=== PATIENT | female | born 1985 | race Caucasian/White ===

== ENCOUNTER 2018-12-08 10:51 | Emergency (ER) | payer BC ==
--- NOTE | 2018-12-08 11:11 | EDM.PDOC ---
ED HPI GENERAL MEDICAL PROBLEM - General Chief Complaint: Eye Problems Stated Complaint: SWOLLEN EYE Time Seen by Provider: 12/08/18 11:02 - History of Present Illness INITIAL COMMENTS - FREE TEXT/NARRATIVE: HISTORY AND PHYSICAL: History of present illness: Patient 33-year-old white female was seen last Saturday for conjunctivitis by her private doctor and put on ophthalmic antibiotic drops she states when she uses them that they burn so she therefore stopped using them but then states she reinitiated them in the last day or so. She was unaware of the discomfort in the form of burning the candle company that thought that she might be having allergic reaction or problem with the medications. She's had some mild lid edema since then. No fever chills nausea vomiting trauma or other concern patient is requesting a change in medication. Review of systems: As per history of present illness and below otherwise all systems reviewed and negative. Past medical history: As per history of present illness and as reviewed below otherwise noncontributory. Surgical history: As per history of present illness and as reviewed below otherwise noncontributory. Social history: No reported history of drug or alcohol abuse. Family history: As per history of present illness and as reviewed below otherwise noncontributory. Physical exam: HEENT: Atraumatic, normocephalic, pupils reactive, negative for conjunctival pallor or scleral icterus, mucous membranes moist, throat clear, neck supple, nontender, trachea midline. Patient is some mild edema of her left upper lid and mild injection of her conjunctiva no corneal foreign body or abrasion appreciated chambers clear Diagnostics: Visual acuity Therapeutics: None Impression: #1 blepharitis/conjunctivitis Definitive disposition and diagnosis as appropriate pending reevaluation and review of above. left eye Pain Score (Numeric/FACES): 5 - Related Data Allergies Allergy/AdvReac Type Severity Reaction Status Date / Time codeine Allergy Vomiting Verified 12/08/18 10:59 Home Meds: Home Meds Polymyxin B Sulfate 1 drop EYELF ASDIRECTED 12/08/18 [History] Past Medical History HEENT History: Reports: None Cardiovascular History: Reports: None Respiratory History: Reports: None Gastrointestinal History: Reports: None Genitourinary History: Reports: None VENDING TECHNICIAN History: Reports: None Musculoskeletal History: Reports: None Neurological History: Reports: None Psychiatric History: Reports: Anxiety Endocrine/Metabolic History: Reports: Hypothyroidism Hematologic History: Reports: None Immunologic History: Reports: None Oncologic (Cancer) History: Reports: None Dermatologic History: Reports: None - Past Surgical History Head Surgeries/Procedures: Reports: None HEENT Surgical History: Reports: None Cardiovascular Surgical History: Reports: None Respiratory Surgical History: Reports: None GI Surgical History: Reports: None Female Surgical History: Reports: None Endocrine Surgical History: Reports: None Neurological Surgical History: Reports: None Musculoskeletal Surgical History: Reports: None Oncologic Surgical History: Reports: None Dermatological Surgical History: Reports: None Social & Family History - Family History Family Medical History: Noncontributory - Tobacco Use Smoking Status *Q: Current Every Day Smoker Years of Tobacco use: 20 Packs/Tins Daily: 1 - Caffeine Use Caffeine Use: Reports: None - Recreational Drug Use Recreational Drug Use: No ED ROS GENERAL - Review of Systems Review Of Systems: ROS reveals no pertinent complaints other than HPI. ED EXAM GENERAL W FULL EYE - Physical Exam Exam: See Below (See dictation) Course - Vital Signs Last Recorded V/S: Last Vital Signs Temp 35.9 C 12/08/18 11:01 Pulse 88 12/08/18 11:01 Resp 18 12/08/18 11:01 BP 116/88 12/08/18 11:01 Pulse Ox 98 12/08/18 11:01 Departure - Departure Time of Disposition: 11:10 Disposition: Home, Self-Care 01 Clinical Impression: Conjunctivitis, Blepharitis - Discharge Information Referrals: PCP,None [Primary Care Provider] - Additional Instructions: The following information is given to patients seen in the emergency department who are being discharged to home. This information is to outline your options for follow-up care. We provide all patients seen in our emergency department with a follow-up referral. The need for follow-up, as well as the timing and circumstances, are variable depending upon the specifics of your emergency department visit. If you don't have a primary care physician on staff, we will provide you with a referral. We always advise you to contact your personal physician following an emergency department visit to inform them of the circumstance of the visit and for follow-up with them and/or the need for any referrals to a consulting specialist. The emergency department will also refer you to a specialist when appropriate. This referral assures that you have the opportunity for followup care with a specialist. All of these measure are taken in an effort to provide you with optimal care, which includes your followup. Under all circumstances we always encourage you to contact your private physician who remains a resource for coordinating your care. When calling for followup care, please make the office aware that this follow-up is from your recent emergency room visit. If for any reason you are refused follow-up, please contact the [facility] emergency department at and asked to speak to the emergency department charge nurse. [facility] [address] [place] [id number] Stop current medications erythromycin ophthalmic ointment as directed warm compresses as discussed follow-up ophthalmology above called schedule routine appointment as needed as discussed and return as needed as discussed
== END 2018-12-08 11:22 | disposition home or self-care (01) ==
LOC: MW.ED 10:51
DX: H10.9 Unspecified conjunctivitis (principal); H01.004 Unspecified blepharitis left upper eyelid; F17.210 Nicotine dependence, cigarettes, uncomplicated; Z88.5 Allergy status to narcotic agent
CPT/HCPCS: 99283

== ENCOUNTER 2020-04-27 07:56 | Inpatient (IN) | payer BC ==
[2020-04-27] MEDS ORDERED: Ondansetron 4 MG/2 ML SDV IVPUSH PRN (08:48)
[2020-04-27] MEDS ORDERED: Sodium Chloride 0.9% 10 ML SDV IV PRN (08:48)
[2020-04-27] MEDS ORDERED: Lidocaine 1% 50 ML MDV INJECT PRN (08:48)
[2020-04-27] MEDS ORDERED: Carboprost Tromethamine 250 MCG/1 ML Amp IM PRN (08:48)
[2020-04-27] MEDS ORDERED: Sodium Chloride 0.9% 2.5 ML Syringe FLUSH PRN (08:48)
[2020-04-27] MEDS ORDERED: Tranexamic Acid 1,000 MG in Sodium Chloride 0.9% 100 ML IV PRN (08:48)
[2020-04-27] MEDS ORDERED: Methylergonovine 0.2 MG/1 ML Amp IM PRN (08:48)
[2020-04-27] MEDS ORDERED: Terbutaline 1 MG/ML SDV SUBCUT PRN (08:48)
[2020-04-27] MEDS ORDERED: Sodium Chloride 0.9% 10 ML Syringe FLUSH PRN (08:48)
[2020-04-27] MEDS ORDERED: Misoprostol 200 MCG Tab PO PRN (08:48)
[2020-04-27] MEDS ORDERED: Water For Irrigation,Sterile 1,000 ML Container IRR PRN (08:48)
[2020-04-27] MEDS ORDERED: Ampicillin 2 GM in Sodium Chloride 0.9% 100 ML IV ONE (09:00)
[2020-04-27] MEDS ORDERED: Misoprostol 50 MCG (1/2 of 100 MCG) Tab PO ONE (09:00)
[2020-04-27] MEDS ORDERED: Oxytocin/0.9 % Sodium Chloride 30 UNIT/500 ML BAG IV SCH ×2 (09:00)
[2020-04-27] MEDS: Lactated Ringers 1,000 ML IV SCH ×2 (09:45→13:09)
[2020-04-27] MEDS ORDERED: Nalbuphine 10 MG/1 ML Vial IVPUSH PRN (11:31)
[2020-04-27] MEDS ORDERED: Butorphanol 1 MG/ML SDV IVPUSH PRN (11:31)
[2020-04-27] MEDS ORDERED: Bupivicaine/fentaNYL/NS 250 ML ONE (12:42)
[2020-04-27] MEDS: Ampicillin 1 GM in Sodium Chloride 0.9% 50 ML IV SCH ×2 (13:13→17:29)
--- NOTE | 2020-04-27 13:14 | PCM.PREANE ---
Preanesthetic Assessment - Anesthesia/Transfusion/Family Hx Anesthesia History: Prior Anesthesia Without Reaction Family History of Anesthesia Reaction: No Transfusion History: No Prior Transfusion(s) - Review of Systems General: No Symptoms Pulmonary: No Symptoms Cardiovascular: No Symptoms Gastrointestinal: No Symptoms Neurological: No Symptoms Other: Reports: Diabetes (GODM) - Physical Assessment NPO Status Date: 04/27/20 NPO Status Time: 13:00 Height: 5 ft 3 in Weight: 86.636 kg ASA Class: 2 Mental Status: Alert & Oriented x3 Airway Class: Mallampati = 2 Dentition: Reports: Normal Dentition Thyro-Mental Finger Breadths: 3 ROM/Head Extension: Full Lungs: Clear to Auscultation, Normal Respiratory Effort Cardiovascular: Regular Rate, Regular Rhythm - Lab Values: Laboratory Last Values WBC 7.98 K/uL (4.0-11.0) 04/27/20 09:20 RBC 4.44 M/uL (4.30-5.90) 04/27/20 09:20 Hgb 13.1 g/dL (12.0-16.0) 04/27/20 09:20 Hct 40.2 % (36.0-46.0) 04/27/20 09:20 MCV 90.5 fL (80.0-98.0) 04/27/20 09:20 MCH 29.5 pg (27.0-32.0) 04/27/20 09:20 MCHC 32.6 g/dL (31.0-37.0) 04/27/20 09:20 RDW Std Deviation 46.4 fl (28.0-62.0) 04/27/20 09:20 RDW Coeff of Janessa 14 % (11.0-15.0) 04/27/20 09:20 Plt Count 198 K/uL (150-400) 04/27/20 09:20 MPV 10.40 fL (7.40-12.00) 04/27/20 09:20 Nucleated RBC % 0.0 /100WBC 04/27/20 09:20 Nucleated RBCs # 0 K/uL 04/27/20 09:20 POC Glucose 78 mg/dL (60-110) 04/27/20 12:44 Membrane Rupture POSITIVE 04/27/20 08:03 Blood Type O POSITIVE 04/27/20 09:20 Antibody Screen NEGATIVE 04/27/20 09:20 - Allergies Allergies/Adverse Reactions: Allergies Allergy/AdvReac Type Severity Reaction Status Date / Time codeine Allergy Vomiting Verified 04/27/20 08:23 - Acknowledgements Anesthesia Type Planned: General Anesthesia Pt an Appropriate Candidate for the Planned Anesthesia: Yes Alternatives and Risks of Anesthesia Discussed w Pt/Guardian: Yes Pt/Guardian Understands and Agrees with Anesthesia Plan: Yes Additional Comments: - 38 3/7 weeks - active labor, SROM, dilated to 3 cm, Rating contractions 08/27 PreAnesthesia Questionnaire HEENT History: Reports: Impaired Vision Cardiovascular History: Reports: None Respiratory History: Reports: None Gastrointestinal History: Reports: None Genitourinary History: Reports: None 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: Musculoskeletal History: Reports: None Neurological History: Reports: Migraines, Other (See Below) Other Neuro History: restless leg syndrome Psychiatric History: Reports: Anxiety Endocrine/Metabolic History: Reports: Diabetes, Gestational, Other (See Below) Other Endocrine/Metabolic History: Grave's disease Hematologic History: Reports: None Immunologic History: Reports: None Oncologic (Cancer) History: Reports: None Dermatologic History: Reports: None - Past Surgical History Head Surgeries/Procedures: Reports: None HEENT Surgical History: Reports: Myringotomy w Tube(s), Oral Surgery Endocrine Surgical History: Reports: None Neurological Surgical History: Reports: None Oncologic Surgical History: Reports: None - SUBSTANCE USE Smoking Status *Q: Former Smoker Tobacco Use Within Last Twelve Months: Cigarettes, Vaping Recreational Drug Use History: No - HOME MEDS Home Medications: Home Meds Fish Oil/[place]-3 Fatty Acids [Fish Oil 1,000 MG] 1 cap PO DAILY 04/27/20 [ History] No122/Iron/Folic Acid [ Multi Tablet] 1 tab PO DAILY 04/27/20 [ History] Propranolol HCl 0.5 tab PO ASDIRECTED 04/27/20 [History] metFORMIN HCl [Metformin HCl] 1 tab PO BID 04/27/20 [History] methIMAzole [Methimazole] 1 tab PO TID 04/27/20 [History] - CURRENT (IN HOUSE) MEDS Current Meds: Current Medications Butorphanol Tartrate (Stadol) 1 mg IVPUSH Q1H PRN PRN Reason: Pain Last Admin: 06/10/20 11:47 Dose: 1 mg Carboprost Tromethamine (Hemabate Ds) 250 mcg IM ASDIRECTED PRN PRN Reason: Post Hemorrhage Tranexamic Acid 1,000 mg/ (Sodium Chloride) 110 mls @ 660 mls/hr IV ONETIME PRN PRN Reason: Bleeding Lactated Ringer's (Ringers, Lactated) 1,000 mls @ 150 mls/hr IV ASDIRECTED LÓPEZ Last Admin: 04/27/20 13:09 Dose: 999 mls/hr Oxytocin/Sodium Chloride (Oxytocin 30 Unit/500 Ml-Ns) 30 unit in 500 mls @ 999 mls/hr IV TITRATE LÓPEZ Oxytocin/Sodium Chloride (Oxytocin 30 Unit/500 Ml-Ns) 30 unit in 500 mls @ 2 mls/hr IV TITRATE LÓPEZ; Protocol Ampicillin Sodium 1 gm/ Sodium (Chloride) 50 mls @ 100 mls/hr IV Q4H LÓPEZ Lidocaine HCl (Xylocaine 1%) 50 ml INJECT ONETIME PRN PRN Reason: Laceration repair Methylergonovine Maleate (Methergine) 0.2 mg IM ASDIRECTED PRN PRN Reason: Post Hemorrhage Misoprostol (Cytotec) 200 mcg PO ONETIME PRN PRN Reason: Post Hemorrhage Nalbuphine HCl (Nubain) 10 mg IVPUSH Q1H PRN PRN Reason: Pain (severe 7-10) Ondansetron HCl (Zofran) 4 mg IVPUSH Q6H PRN PRN Reason: Nausea/Vomiting Sodium Chloride (Saline Flush) 10 ml FLUSH ASDIRECTED PRN PRN Reason: Keep Vein Open Sodium Chloride (Saline Flush) 2.5 ml FLUSH ASDIRECTED PRN PRN Reason: Keep Vein Open Sodium Chloride (Normal Saline) 10 ml IV ASDIRECTED PRN PRN Reason: IV Use Sterile Water (Sterile Water For Irrigation) 1,000 ml IRR ASDIRECTED PRN PRN Reason: delivery Terbutaline Sulfate (Brethine) 0.25 mg SUBCUT ASDIRECTED PRN PRN Reason: Tacysystole Discontinued Medications Ampicillin Sodium 2 gm/ Sodium (Chloride) 100 mls @ 200 mls/hr IV ONETIME ONE Stop: 04/27/20 09:29 Last Admin: 04/27/20 09:45 Dose: 200 mls/hr Fentanyl/Bupivacaine HCl (Fentanyl/Bupivacaine/Ns 2 Mcg-0.125% 250 Ml) Confirm Administered Dose 250 mls @ as directed .ROUTE .STK-MED ONE Stop: 04/27/20 12:43 Misoprostol (Cytotec) 50 mcg PO ONETIME ONE Stop: 04/27/20 09:01 Last Admin: 04/27/20 09:47 Dose: 50 mcg
[2020-04-27] MEDS ORDERED: Lidocaine 1% 50 ML MDV ONE (19:03)
[2020-04-27] MEDS ORDERED: Benzocaine/Menthol 20%-0.5% Spray 78 GM Cannister TOP PRN (20:36)
[2020-04-27] MEDS ORDERED: Docusate Sodium 100 MG Cap PO PRN (20:36)
[2020-04-27] MEDS ORDERED: Ibuprofen 400 MG Tab PO PRN (20:36)
[2020-04-27] MEDS ORDERED: oxyCODONE 5 MG Tab PO PRN (20:36)
[2020-04-27] MEDS ORDERED: Acetaminophen 500 MG Tab PO PRN ×2 (20:36)
[2020-04-27] MEDS ORDERED: Lanolin 100% Cream 7 GM Tube TOP PRN (20:36)
[2020-04-27] MEDS ORDERED: Bisacodyl 10 MG Supp RECTAL PRN (20:36)
[2020-04-27] MEDS ORDERED: Witch Hazel Medicated Pads 40/Jar TOP PRN (20:36)
--- NOTE | 2020-04-27 20:44 | PCM.DEL ---
L & D Note - General Info Date of Service: 04/27/20 - Delivery Note Labor: Augmented by Oxytocin Cervical Ripening Method: Misoprostil Delivery Outcome: Livebirth Infant Delivery Method: Spontaneous Vaginal Delivery-Single Presentation: Left Occiput Anterior (PAMELA) Nuchal Cord: None Anesthesia Type: Epidural Episiotomy Type: Right Mediolateral Suture type: Vicryl Suture size: 3-0 Placenta: Intact Cord: 3 Vessels Estimated Blood Loss: 300 Resuscitation Needed: No Score 1 min: 2 Score 5 min: 8 Delivery Comments (Free Text/Narrative):: Live female delivered at 1957 , weight 3040g - General Info Date of Service: 04/27/20 - Patient Data Weight - Most Recent: 86.636 kg Lab Results Last 24 Hours: Laboratory Results - last 24 hr 04/27/20 04/27/20 04/27/20 Range/Units 08:03 09:20 09:20 WBC 7.98 (4.0-11.0) K/uL RBC 4.44 (4.30-5.90) M/uL Hgb 13.1 (12.0-16.0) g/dL Hct 40.2 (36.0-46.0) % MCV 90.5 (80.0-98.0) fL MCH 29.5 (27.0-32.0) pg MCHC 32.6 (31.0-37.0) g/dL RDW Std Deviation 46.4 (28.0-62.0) fl RDW Coeff of Janessa 14 (11.0-15.0) % Plt Count 198 (150-400) K/uL MPV 10.40 (7.40-12.00) fL Nucleated RBC % 0.0 /100WBC Nucleated RBCs # 0 K/uL POC Glucose (60-110) mg/dL Membrane Rupture POSITIVE Blood Type O POSITIVE Antibody Screen NEGATIVE 04/27/20 04/27/20 04/27/20 Range/Units 10:23 12:44 16:08 WBC (4.0-11.0) K/uL RBC (4.30-5.90) M/uL Hgb (12.0-16.0) g/dL Hct (36.0-46.0) % MCV (80.0-98.0) fL MCH (27.0-32.0) pg MCHC (31.0-37.0) g/dL RDW Std Deviation (28.0-62.0) fl RDW Coeff of Janessa (11.0-15.0) % Plt Count (150-400) K/uL MPV (7.40-12.00) fL Nucleated RBC % /100WBC Nucleated RBCs # K/uL POC Glucose 99 78 79 (60-110) mg/dL Membrane Rupture Blood Type Antibody Screen 04/27/20 Range/Units 18:16 WBC (4.0-11.0) K/uL RBC (4.30-5.90) M/uL Hgb (12.0-16.0) g/dL Hct (36.0-46.0) % MCV (80.0-98.0) fL MCH (27.0-32.0) pg MCHC (31.0-37.0) g/dL RDW Std Deviation (28.0-62.0) fl RDW Coeff of Janessa (11.0-15.0) % Plt Count (150-400) K/uL MPV (7.40-12.00) fL Nucleated RBC % /100WBC Nucleated RBCs # K/uL POC Glucose 84 (60-110) mg/dL Membrane Rupture Blood Type Antibody Screen Med Orders - Current: Current Medications Acetaminophen (Tylenol Extra Strength) 500 mg PO Q4H PRN PRN Reason: Pain Acetaminophen (Tylenol Extra Strength) 1,000 mg PO Q4H PRN PRN Reason: Pain Benzocaine/Menthol (Dermoplast Pain Relief 20%-0.5% [place]loaf) 78 gm TOP ASDIRECTED PRN PRN Reason: Perineal Comfort Measure Bisacodyl (Dulcolax) 10 mg RECTAL ONETIME PRN PRN Reason: Constipation Butorphanol Tartrate (Stadol) 1 mg IVPUSH Q1H PRN PRN Reason: Pain Last Admin: 04/27/20 11:47 Dose: 1 mg Carboprost Tromethamine (Hemabate Ds) 250 mcg IM ASDIRECTED PRN PRN Reason: Post Hemorrhage Docusate Sodium (Colace) 100 mg PO BID PRN PRN Reason: Constipation Emollient Ointment (Lansinoh Hpa) 0 gm TOP ASDIRECTED PRN PRN Reason: Sore Nipples Tranexamic Acid 1,000 mg/ (Sodium Chloride) 110 mls @ 660 mls/hr IV ONETIME PRN PRN Reason: Bleeding Lactated Ringer's (Ringers, Lactated) 1,000 mls @ 150 mls/hr IV ASDIRECTED [facility] Last Admin: 04/27/20 13:09 Dose: 999 mls/hr Oxytocin/Sodium Chloride (Oxytocin 30 Unit/500 Ml-Ns) 30 unit in 500 mls @ 999 mls/hr IV TITRATE LÓPEZ Oxytocin/Sodium Chloride (Oxytocin 30 Unit/500 Ml-Ns) 30 unit in 500 mls @ 2 mls/hr IV TITRATE LÓPEZ; Protocol Last Titration: 04/27/20 16:08 Dose: 8 munits/min, 8 mls/hr Ampicillin Sodium 1 gm/ Sodium (Chloride) 50 mls @ 100 mls/hr IV Q4H [facility] Last Admin: 04/27/20 17:29 Dose: 100 mls/hr Ibuprofen (Motrin) 400 mg PO Q4H PRN PRN Reason: Pain Ibuprofen (Motrin) 800 mg PO Q6H PRN PRN Reason: Pain Lidocaine HCl (Xylocaine 1%) 50 ml INJECT ONETIME PRN PRN Reason: Laceration repair Methimazole (Methimazole) 5 mg PO TID [facility] Methylergonovine Maleate (Methergine) 0.2 mg IM ASDIRECTED PRN PRN Reason: Post Hemorrhage Misoprostol (Cytotec) 200 mcg PO ONETIME PRN PRN Reason: Post Hemorrhage Nalbuphine HCl (Nubain) 10 mg IVPUSH Q1H PRN PRN Reason: Pain (severe 7-10) Ondansetron HCl (Zofran) 4 mg IVPUSH Q6H PRN PRN Reason: Nausea/Vomiting Oxycodone HCl (Oxycodone) 5 mg PO Q2H PRN PRN Reason: Pain Sodium Chloride (Saline Flush) 10 ml FLUSH ASDIRECTED PRN PRN Reason: Keep Vein Open Sodium Chloride (Saline Flush) 2.5 ml FLUSH ASDIRECTED PRN PRN Reason: Keep Vein Open Sodium Chloride (Normal Saline) 10 ml IV ASDIRECTED PRN PRN Reason: IV Use Sterile Water (Sterile Water For Irrigation) 1,000 ml IRR ASDIRECTED PRN PRN Reason: delivery Terbutaline Sulfate (Brethine) 0.25 mg SUBCUT ASDIRECTED PRN PRN Reason: Tacysystole [place] (Tucks) 1 pad TOP ASDIRECTED PRN PRN Reason: comfort care Discontinued Medications Ampicillin Sodium 2 gm/ Sodium (Chloride) 100 mls @ 200 mls/hr IV ONETIME ONE Stop: 04/27/20 09:29 Last Admin: 04/27/20 09:45 Dose: 200 mls/hr Fentanyl/Bupivacaine HCl (Fentanyl/Bupivacaine/Ns 2 Mcg-0.125% 250 Ml) Confirm Administered Dose 250 mls @ as directed .ROUTE .STK-MED ONE Stop: 04/27/20 12:43 Last Admin: 04/27/20 13:19 Dose: Not Given Lidocaine HCl (Xylocaine 1%) Confirm Administered Dose 50 ml .ROUTE .STK-MED ONE Stop: 04/27/20 19:04 Misoprostol (Cytotec) 50 mcg PO ONETIME ONE Stop: 04/27/20 09:01 Last Admin: 04/27/20 09:47 Dose: 50 mcg - Problem List & Annotations (1) Vaginal delivery SNOMED Code(s): 603093266 Code(s): O80 - ENCOUNTER FOR FULL-TERM UNCOMPLICATED DELIVERY Status: Acute Current Visit: Yes - Problem List Review Problem List Initiated/Reviewed/Updated: Yes - My Orders Last 24 Hours: My Active Orders 04/27/20 08:32 Non Stress Test [RC] PER UNIT ROUTINE Up ad Danica [RC] ASDIRECTED Vaginal Exam [RC] Click to Edit Vital Signs [RC] PER UNIT ROUTINE 04/27/20 08:48 Carboprost Tromethamine [Hemabate DS] 250 mcg IM ASDIRECTED PRN Lidocaine 1% [Xylocaine 1%] 50 ml INJECT ONETIME PRN Methylergonovine [Methergine] 0.2 mg IM ASDIRECTED PRN Ondansetron [Zofran] 4 mg IVPUSH Q6H PRN Sodium Chloride 0.9% [Normal Saline] 10 ml IV ASDIRECTED PRN Sodium Chloride 0.9% [Saline Flush] 10 ml FLUSH ASDIRECTED PRN Sodium Chloride 0.9% [Saline Flush] 2.5 ml FLUSH ASDIRECTED PRN Terbutaline [Brethine] 0.25 mg SUBCUT ASDIRECTED PRN Tranexamic Acid [Cyklokapron] 1,000 mg Sodium Chloride 0.9% [Normal Saline] 100 ml IV ONETIME Water For Irrigation,Sterile [Sterile Water for Irrigation] 1,000 ml IRR ASDIRECTED PRN miSOPROStoL [Cytotec] 200 mcg PO ONETIME PRN 04/27/20 08:49 Patient Status [ADT] Routine Bedrest Bathroom Privileges [RC] ASDIRECTED Communication Order [RC] ASDIRECTED Communication Order [RC] ASDIRECTED Communication Order [RC] ASDIRECTED Heart Tones [RC] CONTINUOUS May Shower [RC] ASDIRECTED Notify Provider [RC] PRN Notify Provider [RC] PRN Notify Provider [RC] PRN Notify Provider [RC] STAT Oxygen Therapy [RC] ASDIRECTED Vaginal Exam [RC] PRN Vital Signs [RC] PER UNIT ROUTINE Scalp Electrode [WOMSER] Per Unit Routine Peripheral IV Insertion Adult [OM.PC] Routine 04/27/20 09:00 Lactated Ringers [Ringers, Lactated] 1,000 ml IV ASDIRECTED Oxytocin/0.9 % Sodium Chloride [Oxytocin 30 Unit/500 ML-NS] 30 unit in 500 ml IV TITRATE Oxytocin/0.9 % Sodium Chloride [Oxytocin 30 Unit/500 ML-NS] 30 unit in 500 ml IV TITRATE Medication Administration Instruction [OM.PC] Q3H 04/27/20 09:20 RPR (SYPHILIS SERO) W/ RFLX [REF] Routine 04/27/20 10:00 Blood Glucose Check, Bedside [RC] Q2HR 04/27/20 11:31 Butorphanol [Stadol] 1 mg IVPUSH Q1H PRN Nalbuphine [Nubain] 10 mg IVPUSH Q1H PRN 04/27/20 13:00 Ampicillin 1 gm Sodium Chloride 0.9% [Normal Saline] 50 ml IV Q4H 04/27/20 20:36 Patient Status [ADT] Routine May Shower [RC] ASDIRECTED Up ad Danica [RC] ASDIRECTED Vital Signs [RC] PER UNIT ROUTINE Acetaminophen [Tylenol Extra Strength] 1,000 mg PO Q4H PRN Acetaminophen [Tylenol Extra Strength] 500 mg PO Q4H PRN Benzocaine/Menthol [Dermoplast Pain Relief 20%-0.5% [place]] 78 gm TOP ASDIRECTED PRN Docusate Sodium [Colace] 100 mg PO BID PRN Ibuprofen [Motrin] 400 mg PO Q4H PRN Ibuprofen [Motrin] 800 mg PO Q6H PRN Lanolin [Lansinoh HPA] See Dose Instructions TOP ASDIRECTED PRN bisacodyL [Dulcolax] 10 mg RECTAL ONETIME PRN oxyCODONE 5 mg PO Q2H PRN witch Lola [Tucks] 1 pad TOP ASDIRECTED PRN Assess Lochia [WOMSER] Per Unit Routine Assess Uterine Involution [WOMSER] Per Unit Routine Peripheral IV Discontinue [OM.PC] Routine Resuscitation Status Routine 04/27/20 22:00 methIMAzole 5 mg PO TID 04/28/20 05:11 HEMOGLOBIN/HEMATOCRIT,HH [HEME] Timed
[2020-04-27] MEDS ORDERED: Oxytocin/0.9 % Sodium Chloride 30 UNIT/500 ML BAG ONE (22:16)
[2020-04-27] MEDS: Ibuprofen 800 MG Tab PO PRN (23:46)
[2020-04-28] MEDS: Methimazole 5 MG Tab PO SCH ×3 (06:37→23:00)
--- NOTE | 2020-04-28 07:22 | PCM48HPAN ---
Post Anesthesia Note - EVALUATION WITHIN 48HRS OF ANESTHETIC Vital Signs in Normal Range: Yes Patient Participated in Evaluation: Yes Respiratory Function Stable: Yes Airway Patent: Yes Cardiovascular Function Stable: Yes Hydration Status Stable: Yes Pain Control Satisfactory: Yes Nausea and Vomiting Control Satisfactory: Yes Mental Status Recovered: Yes Vital Signs: Last Vital Signs Temp 36.4 C 04/28/20 04:54 Pulse 75 04/28/20 04:54 Resp 15 04/28/20 04:54 BP 97/56 L 04/28/20 04:54 Pulse Ox 100 04/28/20 04:54
--- NOTE | 2020-04-28 10:06 | OR ---
SURGEON: DEANA SALAMANCA DATE OF PROCEDURE: 04/27/2020 PREOPERATIVE DIAGNOSIS: A 35-year-old G4, P3, at 38 weeks 3 days, admitted for induction of labor for pre-labor rupture of membranes. She is also GDM A2, on metformin, and hyperthyroidism, on methimazole. POSTOPERATIVE DIAGNOSES: A 35-year-old G4, P3, at 38 weeks 3 days, admitted for induction of labor for pre-labor rupture of membranes. She is also GDM A2, on metformin, and hyperthyroidism, on methimazole. PROCEDURE: Normal spontaneous vaginal delivery and repair of right mediolateral episiotomy. ESTIMATED BLOOD LOSS: 300. ANESTHESIA: Epidural. IV FLUIDS: Pitocin running. NOTES AND FINDINGS: Live female delivered at 1957, score is 2 and 8. Weight is 3040 g. PROCEDURE: Patient came in complaining of leakage of fluid. She had an AmniSure done, was positive. As a result, she was admitted. She was 1 cm dilated. She got Cytotec and she made change. She became 3 and Pitocin was started. Then, she made change and became fully dilated. The patient being fully dilated, she was encouraged to push. With good pushing effort, she delivered the head, subsequently by the anterior and posterior shoulder. Body was delivered and placed on maternal abdomen. Cord clamping was done. Cord blood gases was obtained Placenta was delivered via controlled cord traction. Perineum was inspected. Episiotomy was repaired in layers with 3-0 Vicryl. The uterus, bimanual massage was done. Hemostasis was noted. Uterus was noted to be firm. Then, the patient was left in Labor and Delivery room in stable condition. WALLACE AHN /[id number] FLY
[2020-04-28] MEDS: Ibuprofen 800 MG Tab PO PRN (12:40)
--- NOTE | 2020-04-28 15:14 | PCM.PNPP ---
- General Info Date of Service: 04/28/20 Functional Status: Reports: Pain Controlled, Tolerating Diet, Ambulating, Urinating - Review of Systems General: Reports: No Symptoms HEENT: Reports: No Symptoms Pulmonary: Reports: No Symptoms Cardiovascular: Reports: No Symptoms Gastrointestinal: Reports: No Symptoms Genitourinary: Reports: No Symptoms Musculoskeletal: Reports: No Symptoms Skin: Reports: No Symptoms Neurological: Reports: No Symptoms Psychiatric: Reports: No Symptoms - General Info Date of Service: 04/28/20 - Patient Data Vital Signs - Most Recent: Last Vital Signs Temp 36.5 C 04/28/20 07:45 Pulse 88 04/28/20 07:45 Resp 16 04/28/20 07:45 BP 106/66 04/28/20 07:45 Pulse Ox 95 04/28/20 07:45 Weight - Most Recent: 86.636 kg Lab Results - Last 24 Hours: Laboratory Results - last 24 hr 04/27/20 04/27/20 04/28/20 Range/Units 16:08 18:16 05:03 Hgb 12.3 (12.0-16.0) g/dL Hct 36.5 (36.0-46.0) % POC Glucose 79 84 (60-110) mg/dL Med Orders - Current: Current Medications Acetaminophen (Tylenol Extra Strength) 500 mg PO Q4H PRN PRN Reason: Pain Acetaminophen (Tylenol Extra Strength) 1,000 mg PO Q4H PRN PRN Reason: Pain Benzocaine/Menthol (Dermoplast Pain Relief 20%-0.5% [place]) 78 gm TOP ASDIRECTED PRN PRN Reason: Perineal Comfort Measure Last Admin: 04/27/20 23:45 Dose: 1 canister Bisacodyl (Dulcolax) 10 mg RECTAL ONETIME PRN PRN Reason: Constipation Butorphanol Tartrate (Stadol) 1 mg IVPUSH Q1H PRN PRN Reason: Pain Last Admin: 04/27/20 11:47 Dose: 1 mg Carboprost Tromethamine (Hemabate Ds) 250 mcg IM ASDIRECTED PRN PRN Reason: Post Hemorrhage Docusate Sodium (Colace) 100 mg PO BID PRN PRN Reason: Constipation Emollient Ointment (Lansinoh Hpa) 0 gm TOP ASDIRECTED PRN PRN Reason: Sore Nipples Last Admin: 04/27/20 23:46 Dose: 1 tube Tranexamic Acid 1,000 mg/ (Sodium Chloride) 110 mls @ 660 mls/hr IV ONETIME PRN PRN Reason: Bleeding Lactated Ringer's (Ringers, Lactated) 1,000 mls @ 150 mls/hr IV ASDIRECTED [facility] Last Admin: 04/27/20 13:09 Dose: 999 mls/hr Oxytocin/Sodium Chloride (Oxytocin 30 Unit/500 Ml-Ns) 30 unit in 500 mls @ 999 mls/hr IV TITRATE [facility] Oxytocin/Sodium Chloride (Oxytocin 30 Unit/500 Ml-Ns) 30 unit in 500 mls @ 2 mls/hr IV TITRATE [facility]; Protocol Last Titration: 04/27/20 19:58 Dose: 999 munits/min, 999 mls/hr Ibuprofen (Motrin) 400 mg PO Q4H PRN PRN Reason: Pain Ibuprofen (Motrin) 800 mg PO Q6H PRN PRN Reason: Pain Last Admin: 04/28/20 12:40 Dose: 800 mg Lidocaine HCl (Xylocaine 1%) 50 ml INJECT ONETIME PRN PRN Reason: Laceration repair Methimazole (Methimazole) 5 mg PO TID [facility] Last Admin: 04/28/20 06:37 Dose: 5 mg Methylergonovine Maleate (Methergine) 0.2 mg IM ASDIRECTED PRN PRN Reason: Post Hemorrhage Misoprostol (Cytotec) 200 mcg PO ONETIME PRN PRN Reason: Post Hemorrhage Nalbuphine HCl (Nubain) 10 mg IVPUSH Q1H PRN PRN Reason: Pain (severe 7-10) Ondansetron HCl (Zofran) 4 mg IVPUSH Q6H PRN PRN Reason: Nausea/Vomiting Oxycodone HCl (Oxycodone) 5 mg PO Q2H PRN PRN Reason: Pain Sodium Chloride (Saline Flush) 10 ml FLUSH ASDIRECTED PRN PRN Reason: Keep Vein Open Sodium Chloride (Saline Flush) 2.5 ml FLUSH ASDIRECTED PRN PRN Reason: Keep Vein Open Sodium Chloride (Normal Saline) 10 ml IV ASDIRECTED PRN PRN Reason: IV Use Sterile Water (Sterile Water For Irrigation) 1,000 ml IRR ASDIRECTED PRN PRN Reason: delivery Terbutaline Sulfate (Brethine) 0.25 mg SUBCUT ASDIRECTED PRN PRN Reason: Tacysystole [place] Surekha (Tucks) 1 pad TOP ASDIRECTED PRN PRN Reason: comfort care Discontinued Medications Ampicillin Sodium 2 gm/ Sodium (Chloride) 100 mls @ 200 mls/hr IV ONETIME ONE Stop: 04/27/20 09:29 Last Admin: 04/27/20 09:45 Dose: 200 mls/hr Ampicillin Sodium 1 gm/ Sodium (Chloride) 50 mls @ 100 mls/hr IV Q4H [facility] Last Admin: 04/27/20 17:29 Dose: 100 mls/hr Fentanyl/Bupivacaine HCl (Fentanyl/Bupivacaine/Ns 2 Mcg-0.125% 250 Ml) Confirm Administered Dose 250 mls @ as directed .ROUTE .STK-MED ONE Stop: 04/27/20 12:43 Last Admin: 04/27/20 13:19 Dose: Not Given Oxytocin/Sodium Chloride (Oxytocin 30 Unit/500 Ml-Ns) Confirm Administered Dose 30 unit in 500 mls @ as directed .ROUTE .STK-MED ONE Stop: 04/27/20 22:17 Lidocaine HCl (Xylocaine 1%) Confirm Administered Dose 50 ml .ROUTE .STK-MED ONE Stop: 04/27/20 19:04 Misoprostol (Cytotec) 50 mcg PO ONETIME ONE Stop: 04/27/20 09:01 Last Admin: 04/27/20 09:47 Dose: 50 mcg - Interaction Support Person: - Recovery Exam Fundal Tone: Firm Fundal Level: At Umbilicus Fundal Placement: Midline Lochia Amount: Scant Lochia Color: Rubra/Red Perineum Description: Edematous Episiotomy/Laceration: Approximated Bladder Status: Voiding - Exam General: Alert HEENT: Pupils Equal Neck: Supple Lungs: Clear to Auscultation Cardiovascular: Regular Rate, Regular Rhythm GI/Abdominal Exam: Normal Bowel Sounds Extremities: Normal Inspection Neurological: No New Focal Deficit Psy/Mental Status: Alert - Problem List & Annotations (1) Vaginal delivery SNOMED Code(s): 305317781 Code(s): O80 - ENCOUNTER FOR FULL-TERM UNCOMPLICATED DELIVERY Status: Acute Current Visit: Yes - Problem List Review Problem List Initiated/Reviewed/Updated: Yes - My Orders Last 24 Hours: My Active Orders 04/27/20 20:36 Patient Status [ADT] Routine May Shower [RC] ASDIRECTED Up ad Danica [RC] ASDIRECTED Vital Signs [RC] PER UNIT ROUTINE Acetaminophen [Tylenol Extra Strength] 1,000 mg PO Q4H PRN Acetaminophen [Tylenol Extra Strength] 500 mg PO Q4H PRN Benzocaine/Menthol [Dermoplast Pain Relief 20%-0.5% Thida] 78 gm TOP ASDIRECTED PRN Docusate Sodium [Colace] 100 mg PO BID PRN Ibuprofen [Motrin] 400 mg PO Q4H PRN Ibuprofen [Motrin] 800 mg PO Q6H PRN Lanolin [Lansinoh HPA] See Dose Instructions TOP ASDIRECTED PRN bisacodyL [Dulcolax] 10 mg RECTAL ONETIME PRN oxyCODONE 5 mg PO Q2H PRN witch Surekha [Tucks] 1 pad TOP ASDIRECTED PRN Assess Lochia [WOMSER] Per Unit Routine Assess Uterine Involution [WOMSER] Per Unit Routine Peripheral IV Discontinue [OM.PC] Routine Resuscitation Status Routine 04/27/20 22:00 methIMAzole 5 mg PO TID 04/28/20 Breakfast Regular Diet [DIET] - Assessment Assessment:: 35yo P1 s/p PPD1 ambulating , voiding and tolerating regular diet - Plan Plan:: Routine
[2020-04-29] MEDS: Ibuprofen 800 MG Tab PO PRN ×2 (02:15→13:43)
--- NOTE | 2020-04-29 08:45 | PCM.PNPP ---
- General Info Date of Service: 04/29/20 Functional Status: Reports: Pain Controlled, Tolerating Diet, Ambulating, Urinating - Review of Systems General: Reports: No Symptoms HEENT: Reports: No Symptoms Pulmonary: Reports: No Symptoms Cardiovascular: Reports: No Symptoms Gastrointestinal: Reports: No Symptoms Genitourinary: Reports: No Symptoms Musculoskeletal: Reports: No Symptoms Skin: Reports: No Symptoms Neurological: Reports: No Symptoms Psychiatric: Reports: No Symptoms - General Info Date of Service: 04/29/20 - Patient Data Vital Signs - Most Recent: Last Vital Signs Temp 36.6 C 04/29/20 04:53 Pulse 80 04/29/20 04:53 Resp 16 04/29/20 04:53 BP 120/62 04/29/20 04:53 Pulse Ox 95 04/29/20 04:53 Weight - Most Recent: 86.636 kg Med Orders - Current: Current Medications Acetaminophen (Tylenol Extra Strength) 500 mg PO Q4H PRN PRN Reason: Pain Acetaminophen (Tylenol Extra Strength) 1,000 mg PO Q4H PRN PRN Reason: Pain Benzocaine/Menthol (Dermoplast Pain Relief 20%-0.5% [place]) 78 gm TOP ASDIRECTED PRN PRN Reason: Perineal Comfort Measure Last Admin: 04/27/20 23:45 Dose: 1 canister Bisacodyl (Dulcolax) 10 mg RECTAL ONETIME PRN PRN Reason: Constipation Butorphanol Tartrate (Stadol) 1 mg IVPUSH Q1H PRN PRN Reason: Pain Last Admin: 04/27/20 11:47 Dose: 1 mg Carboprost Tromethamine (Hemabate Ds) 250 mcg IM ASDIRECTED PRN PRN Reason: Post Hemorrhage Docusate Sodium (Colace) 100 mg PO BID PRN PRN Reason: Constipation Emollient Ointment (Lansinoh Hpa) 0 gm TOP ASDIRECTED PRN PRN Reason: Sore Nipples Last Admin: 04/27/20 23:46 Dose: 1 tube Tranexamic Acid 1,000 mg/ (Sodium Chloride) 110 mls @ 660 mls/hr IV ONETIME PRN PRN Reason: Bleeding Lactated Ringer's (Ringers, Lactated) 1,000 mls @ 150 mls/hr IV ASDIRECTED [facility] Last Admin: 04/27/20 13:09 Dose: 999 mls/hr Oxytocin/Sodium Chloride (Oxytocin 30 Unit/500 Ml-Ns) 30 unit in 500 mls @ 999 mls/hr IV TITRATE [facility]PE[facility] Oxytocin/Sodium Chloride (Oxytocin 30 Unit/500 Ml-Ns) 30 unit in 500 mls @ 2 mls/hr IV TITRATE [facility]; Protocol Last Titration: 04/27/20 19:58 Dose: 999 munits/min, 999 mls/hr Ibuprofen (Motrin) 400 mg PO Q4H PRN PRN Reason: Pain Ibuprofen (Motrin) 800 mg PO Q6H PRN PRN Reason: Pain Last Admin: 04/29/20 02:15 Dose: 800 mg Lidocaine HCl (Xylocaine 1%) 50 ml INJECT ONETIME PRN PRN Reason: Laceration repair Methimazole (Methimazole) 5 mg PO TID [facility] Last Admin: 04/28/20 23:00 Dose: Not Given Methylergonovine Maleate (Methergine) 0.2 mg IM ASDIRECTED PRN PRN Reason: Post Hemorrhage Misoprostol (Cytotec) 200 mcg PO ONETIME PRN PRN Reason: Post Hemorrhage Nalbuphine HCl (Nubain) 10 mg IVPUSH Q1H PRN PRN Reason: Pain (severe 7-10) Ondansetron HCl (Zofran) 4 mg IVPUSH Q6H PRN PRN Reason: Nausea/Vomiting Oxycodone HCl (Oxycodone) 5 mg PO Q2H PRN PRN Reason: Pain Sodium Chloride (Saline Flush) 10 ml FLUSH ASDIRECTED PRN PRN Reason: Keep Vein Open Sodium Chloride (Saline Flush) 2.5 ml FLUSH ASDIRECTED PRN PRN Reason: Keep Vein Open Sodium Chloride (Normal Saline) 10 ml IV ASDIRECTED PRN PRN Reason: IV Use Sterile Water (Sterile Water For Irrigation) 1,000 ml IRR ASDIRECTED PRN PRN Reason: delivery Terbutaline Sulfate (Brethine) 0.25 mg SUBCUT ASDIRECTED PRN PRN Reason: Tacysystole Witch Surekha (Tucks) 1 pad TOP ASDIRECTED PRN PRN Reason: comfort care Discontinued Medications Ampicillin Sodium 2 gm/ Sodium (Chloride) 100 mls @ 200 mls/hr IV ONETIME ONE Stop: 04/27/20 09:29 Last Admin: 04/27/20 09:45 Dose: 200 mls/hr Ampicillin Sodium 1 gm/ Sodium (Chloride) 50 mls @ 100 mls/hr IV Q4H [facility] Last Admin: 04/27/20 17:29 Dose: 100 mls/hr Fentanyl/Bupivacaine HCl (Fentanyl/Bupivacaine/Ns 2 Mcg-0.125% 250 Ml) Confirm Administered Dose 250 mls @ as directed .ROUTE .STK-MED ONE Stop: 04/27/20 12:43 Last Admin: 04/27/20 13:19 Dose: Not Given Oxytocin/Sodium Chloride (Oxytocin 30 Unit/500 Ml-Ns) Confirm Administered Dose 30 unit in 500 mls @ as directed .ROUTE .STK-MED ONE Stop: 04/27/20 22:17 Lidocaine HCl (Xylocaine 1%) Confirm Administered Dose 50 ml .ROUTE .STK-MED ONE Stop: 04/27/20 19:04 Misoprostol (Cytotec) 50 mcg PO ONETIME ONE Stop: 04/27/20 09:01 Last Admin: 04/27/20 09:47 Dose: 50 mcg - Interaction Support Person: - Recovery Exam Fundal Tone: Firm Fundal Level: 1 Fingerbreadths Below Umbilicus Fundal Placement: Midline Lochia Amount: Scant Lochia Color: Rubra/Red Perineum Description: Edematous Episiotomy/Laceration: Approximated Bladder Status: Voiding Urinary Elimination: Voided - Exam General: Alert HEENT: Pupils Equal Neck: Supple Lungs: Clear to Auscultation Cardiovascular: Regular Rate, Regular Rhythm GI/Abdominal Exam: Normal Bowel Sounds Extremities: Normal Inspection Neurological: No New Focal Deficit - Problem List & Annotations (1) Vaginal delivery SNOMED Code(s): 714443370 Code(s): O80 - ENCOUNTER FOR FULL-TERM UNCOMPLICATED DELIVERY Status: Acute Current Visit: Yes - Problem List Review Problem List Initiated/Reviewed/Updated: Yes - Assessment Assessment:: 35yo P1 s/p PPD2 ambulating , voiding and tolerating regular diet - Plan Plan:: Discharge home
== END 2020-04-29 16:00 | disposition home or self-care (01) | DRG 560 ==
LOC: MW.OB 07:56 → MW.OBCHECK 07:56 → MW.OB 08:49 → OBSVTOIN 20:36 → MW.OB 04-28 02:07
PROVIDERS: ADMIT Obstetrics & Gynecology; ATTEND Obstetrics & Gynecology
PROC: 10E0XZZ Delivery of Products of Conception, External Approach (ICD-10-PCS; principal; 2020-04-27)
PROC: 0W8NXZZ Division of Female Perineum, External Approach (ICD-10-PCS; 2020-04-27)
PROC: 3E0P7VZ Introduction of Hormone into Female Reproductive, Via Natural or Artificial Opening (ICD-10-PCS; 2020-04-27)
PROC: 3E033VJ Introduction of Other Hormone into Peripheral Vein, Percutaneous Approach (ICD-10-PCS; 2020-04-27)
PROC: 3E0R3BZ Introduction of Anesthetic Agent into Spinal Canal, Percutaneous Approach (ICD-10-PCS; 2020-04-27)
DX: O42.92 Full-term premature rupture of membranes, unspecified as to length of time between rupture and onset of labor (principal); Z37.0 Single live birth; Z3A.38 38 weeks gestation of pregnancy; O99.824 Streptococcus B carrier state complicating childbirth; O99.284 Endocrine, nutritional and metabolic diseases complicating childbirth; E05.90 Thyrotoxicosis, unspecified without thyrotoxic crisis or storm; O24.429 Gestational diabetes mellitus in childbirth, unspecified control
CPT/HCPCS: 36415; 51702; 59025; 59409; 82962; 84112; 85014; 85018; 85027; 86592; 86593; 86850; 86900; 86901; A9270-GY; J0290; J0595; J2590; J7050; J7120